=== PATIENT | female | born 1965 | race Caucasian/White ===

== ENCOUNTER 2018-06-01 00:33 | Emergency (ER) | payer BC ==
[2018-06-01] MEDS ORDERED: NS 0.9% 1000 ML* 1,000 ML IV ONE ×2 (00:38→02:03)
[2018-06-01] MEDS ORDERED: Ondansetron ODT TAB* 4 MG SL PRN (00:39)
[2018-06-01] MEDS ORDERED: Ondansetron ODT TAB* 4 MG SL ONE (00:49)
[2018-06-01 00:56] LABS: Hematocrit 46 % (35-47); Hemoglobin 15.8 g/dl (12.0-16.0); Mean Corpuscular HGB Conc 34 g/dl (31-36); Mean Corpuscular Hemoglobin 31 pg (27-31); Mean Corpuscular Volume 91 fL (80-97); Mean Platelet Volume 8.4 um3 (7.4-10.4); Platelet Count 303 10^3/ul (150-450); Red Blood Count 5.03 10^6/ul (4.00-5.40); Red Cell Distribution Width 14 % (10.5-15); White Blood Count 15.9 10^3/ul (3.5-10.8)
[2018-06-01] MEDS ORDERED: Ondansetron ODT TAB* 4 MG ONE (00:56)
[2018-06-01 01:07] LABS: ABS Basophils 0.1 10^3/ul (0-0.2); ABS Eosinophils 0.3 10^3/ul (0-0.6); ABS Lymphocytes 5.1 10^3/ul (1.0-4.8); ABS Monocytes 1.2 10^3/ul (0-0.8); ABS Neutrophils 9.2 10^3/ul (1.5-7.7)
[2018-06-01 01:13] LABS: INR 0.86 (0.77-1.02)
[2018-06-01 01:14] LABS: EGFR Non-African American 56.1 (>60)
[2018-06-01 01:34] LABS: Monocytes % 3 % (0-7)
[2018-06-01] MEDS ORDERED: Metoclopramide IV* 5 MG/ML 2 ML VIAL IV SLOW PU ONE (02:02)
[2018-06-01] MEDS ORDERED: Ketorolac INJ* 30 MG/ML 1 ML VIAL IV PUSH ONE (02:02)
[2018-06-01] MEDS ORDERED: diPHENhydraMINE IV* 50 MG/ML 1 ml VIAL (BENADRYL) IV ONE (02:03)
[2018-06-01 03:18] VITALS: BP 93/44
--- NOTE | 2018-06-01 03:35 | ED ---
Darrick Albrecht Devyn, scribed for Nancy Spence MD on 06/01/18 at 0105 . Syncope/Near Syncope - HPI Summary HPI Summary: This patient is a 53 year old F who experienced syncope while in [facility] with her daughter. She cried out and fell out of her chair head first after seeing blood being drawn from her daughter. Upon awakening from the fall, pt was dry- heaving. Pt remembers crying out but not hitting her head. PMHx of vasovagal syncope due to seeing needles and/or blood drawn. Pt c/o no pain but reports that she is nauseous. Pt vomited while in the ED. - History Of Current Complaint Chief Complaint: EDSyncope Time Seen by Provider: 06/01/18 00:37 Hx Obtained From: Patient Onset/Duration: Sudden Onset, Resolved Context: Witnessed, Loss Of Consciousness Activity At Onset: At Rest Associated Head Trauma: No Associated Signs And Symptoms: Vomiting - Allergies/Home Medications Allergies/Adverse Reactions: Allergies Allergy/AdvReac Type Severity Reaction Status Date / Time No Known Allergies Allergy Verified 08/03/14 16:36 Home Medications: Home Medications Aspirin 81 mg CHEW TAB* [Aspirin Low Dose TAB*] 81 mg PO DAILY 06/01/18 [ History Confirmed 06/01/18] Atorvastatin* [Lipitor*] 80 mg PO 1700 06/01/18 [History Confirmed 06/01/18] Fluoxetine HCl 40 mg PO DAILY 06/01/18 [History Confirmed 06/01/18] Metoprolol Tartrate TAB* [Lopressor TAB*] 50 mg PO DAILY 06/01/18 [History Confirmed 06/01/18] Naproxen [Naproxen 500 mg tab] 500 mg PO DAILY 06/01/18 [History Confirmed 06/01] [place]-3 Fatty Acids/Fish Oil [Fish Oil 1,000 mg Capsule] 1 each PO DAILY [History Confirmed 06/01/18] cloNIDine TAB* [Catapres 0.1 MG TAB*] 0.2 mg PO DAILY 06/01/18 [History Confirmed 06/01/18] PMH/Surg Hx/FS Hx/Imm Hx Cardiovascular History: Reports: Hx Syncope - vasovagal History: Denies: Hx Dialysis Infectious Disease History: No Infectious Disease History: Denies: Traveled Outside the [place] in Last 30 Days - Family History Known Family History: Positive: Other - vasovagal syncope, daughter - Social History Alcohol Use: Rare Substance Use Type: Reports: None Smoking Status (MU): Heavy Every Day Tobacco Smoker Review of Systems Positive: Vomiting, Nausea Positive: Syncope All Other Systems Reviewed And Are Negative: Yes Physical Exam - Summary Physical Exam Summary: VITAL SIGNS: Reviewed. GENERAL: Patient is a well-developed and nourished female who is lying in the stretcher. Patient is not in any acute respiratory distress. HEAD AND FACE: No signs of trauma. No ecchymosis, hematomas or skull depressions. No sinus tenderness. EYES: PERRLA, EOMI x 2, No injected conjunctiva, no nystagmus. EARS: Hearing grossly intact. Ear canals and tympanic membranes are within normal limits. MOUTH: Oropharynx within normal limits. NECK: Supple, trachea is midline, no adenopathy, no JVD, no carotid bruit, no c- spine tenderness, neck with full ROM. CHEST: Symmetric, no tenderness at palpation LUNGS: Clear to auscultation bilaterally. No wheezing or crackles. CVS: Regular rate and rhythm, S1 and S2 present, no murmurs or gallops appreciated. ABDOMEN: Soft, non-tender. No signs of distention. No rebound no guarding, and no masses palpated. Bowel sounds are normal. EXTREMITIES: FROM in all major joints, no edema, no cyanosis or clubbing. NEURO: Alert and oriented x 3. No acute neurological deficits. Speech is normal and follows commands. SKIN: Dry and warm Triage Information Reviewed: Yes Vital Signs On Initial Exam: Initial Vitals Temp Pulse Resp BP Pulse Ox 98.3 F 66 20 127/64 96 06/01/18 00:35 06/01/18 00:35 06/01/18 00:35 06/01/18 00:35 06/01/18 00:35 Vital Signs Reviewed: Yes Diagnostics - Vital Signs Vital Signs Temp Pulse Resp BP Pulse Ox 06/01/18 00:35 98.3 F 66 20 127/64 96 - Laboratory Result Diagrams: 06/01/18 00:47 06/01/18 00:47 Lab Statement: Any lab studies that have been ordered have been reviewed, and results considered in the medical decision making process. - CT CT Head CT Interpretation Completed By: Radiologist - Normal brain. No acute intracranial abnormality. No hemorrhage. No visible infarct or mass. Osseous structures are intact. Dr. Spence reviewed this report. - EKG 00:30 Cardiac Rate: NL EKG Rhythm: Sinus Rhythm - 70bpm EKG Interpretation: Normal axis. Normal interval. No ischemic changes Course/Dx Course Of Treatment: This patient is a 53 year old F who experienced syncope while in [facility] with her daughter. She cried out and fell out of her chair head first after seeing blood being drawn from her daughter. Upon awakening from the fall, pt was dry-heaving. Pt remembers crying out but not hitting her head. PMHx of vasovagal syncope. Pt c/o no pain but reports that she is nauseous. Pt vomited while in the ED. CT brain showed no abnormalities. Test results with no significant abnormalities except for WBC 15.9, Reactive Lymphs 15 H, glucose 154 H, Lactic Acid 2.2 H, alkaline phosphatase 135 H, TSH 6.36. In the ED course the patient was given Zofran, Benadryl, Toradol, Reglan, and IV fluids. Patient will be discharged with follow up from PCP. The patient is agreeable with this plan. - Diagnoses Provider Diagnoses: Headache, Vasovagal syncope Discharge - Sign-Out/Discharge Documenting (check all that apply): Discharge/Admit/Transfer - discharge - Discharge Plan Condition: Stable Disposition: HOME Patient Education Materials: Syncope (ED) Referrals: Cem SCOTT,Tip Logan [Primary Care Provider] - 3 Days () Additional Instructions: RETURN TO THE EMERGENCY DEPARTMENT FOR CHANGING OR WORSENING SYMPTOMS The documentation as recorded by the Darrick tilley Devyn accurately reflects the service I personally performed and the decisions made by , Nancy Spence MD.
--- NOTE | 2018-06-01 07:55 | RAD ---
INDICATION: Syncope COMPARISON: None TECHNIQUE: Noncontrast axial source images were acquired from the skull base to the vertex. FINDINGS: Ventricles/sulci: The ventricles and cisterns are normal in size and configuration for age. Brain parenchyma: There is no focal parenchymal finding, evidence of intracranial mass, or intracranial mass effect. Intracranial hemorrhage:None. Extra-axial spaces: There are no abnormal extra axial fluid collections or evidence of extra-axial mass. Calvarium: There is no calvarial fracture or other calvarial abnormality. Scalp: There is no evidence of scalp or extracalvarial soft tissue abnormality. Paranasal sinuses/mastoid: The paranasal sinuses and mastoid air cells are clear. Other: None. IMPRESSION: NEGATIVE EXAMINATION
== END 2018-06-01 03:19 | disposition home or self-care (01) ==
LOC: ED 00:33
DX: R55 Syncope and collapse (principal); R51 Headache; R11.2 Nausea with vomiting, unspecified; Z79.82 Long term (current) use of aspirin; F17.210 Nicotine dependence, cigarettes, uncomplicated
CPT/HCPCS: 36415; 70450; 80053; 83605; 83735; 84443; 84484; 85025; 85060; 85610; 85730; 86308; 93005; 96374; 96375; 99283; A9270-GY; J1200; J1885; J2765

== ENCOUNTER 2020-02-03 09:42 | Emergency (ER) | payer BC ==
[2020-02-03 10:04] VITALS: BP 140/66
--- NOTE | 2020-02-03 11:40 | UC ---
Throat Pain/Nasal Jalil HPI - HPI Summary HPI Summary: 54-year-old female presenting with left-sided sinus pain, dental pain, and earache. Patient states symptoms began 3 days ago and have worsened today. Thinks she might be congested but isn't sure if it congestion or tooth pain. Denies fever and chills. Denies drainage from many teeth. Does note minimal left-sided facial swelling. Denies nausea or vomiting. Taking ibuprofen and Tylenol for pain relief. - History of Current Complaint Chief Complaint: UCRespiratory Stated Complaint: DENTAL/SINUS PAIN Hx Obtained From: Patient Pain Intensity: 6 Pain Scale Used: 0-10 Numeric - Allergies/Home Medications Allergies/Adverse Reactions: Allergies Allergy/AdvReac Type Severity Reaction Status Date / Time No Known Allergies Allergy Verified 02/03/20 09:59 Home Medications: Home Medications Aspirin 81 mg CHEW TAB* [Aspirin Low Dose TAB*] 81 mg PO DAILY 06/01/18 [ History Confirmed 02/03/20] Atorvastatin* [Lipitor*] 80 mg PO DAILY 06/01/18 [History Confirmed 02/03/20] Metoprolol Tartrate TAB* [Lopressor TAB*] 50 mg PO DAILY 06/01/18 [History Confirmed 02/03/20] Amoxicillin PO (*) [Amoxicillin 500 MG CAP*] 500 mg PO TID #21 cap 02/03/20 [Rx] FLUoxetine CAP* [PROzac CAP*] 40 mg PO DAILY 02/03/20 [History Confirmed ] Naproxen TAB* [Naprosyn 250 mg TAB*] 500 mg PO DAILY 02/03/20 [History Confirmed 02/03/20] PMH/Surg Hx/FS Hx/Imm Hx Previously Healthy: Yes - Surgical History Surgical History: Yes Surgery Procedure, Year, and Place: Hysterectomy, ~2016 - Family History Known Family History: Positive: Other - vasovagal syncope, daughter - Social History Alcohol Use: Rare Substance Use Type: None Smoking Status (MU): Heavy Every Day Tobacco Smoker Type: Cigarettes Amount Used/How Often: ~1/2 PPD Length of Time of Smoking/Using Tobacco: Since Age 18 Household Exposure Type: Cigarettes Review of Systems All Other Systems Reviewed And Are Negative: Yes Constitutional: Positive: Negative ENT: Positive: Dental Pain - left upper, Ear Ache - left, Sinus Congestion - left, Sinus Pain/Tenderness - left Respiratory: Positive: Negative Cardiovascular: Positive: Negative Gastrointestinal: Positive: Negative Musculoskeletal: Positive: Negative Neurological/Mental Status: Positive: Negative Physical Exam - Summary Physical Exam Summary: Vital Signs Reviewed: Yes A+Ox3, no distress Eyes: Conjunctiva Clear ENT: Hearing grossly normal, b/l cerumen impaction, moist, uvula midline, no exudate, no erythema Dental exam: +TTP tooth #14 with mild surrounding erythema, no drainage, no fluctuance, +mild left side facial edema Neck: Positive: Supple, +preauricular node enlargement Respiratory: Positive: No respiratory distress, No accessory muscle use + CTA throughout no w/r Cardiovascular: RRR nl s1, s2 no m/r Musculoskeletal Exam: BROOKS x 4 without difficulty Neurological: Positive: Alert Psychological: Positive: age appropriate behavior Skin: Positive: no rash, no ecchymosis Vital Signs: Initial Vital Signs Temp 98 F 02/03/20 09:57 Pulse 66 02/03/20 09:57 Resp 18 02/03/20 09:57 BP 140/66 02/03/20 09:57 Pulse Ox 99 02/03/20 09:57 Throat Pain/Nasal Course/Dx - Course Course Of Treatment: Bilateral cerumen impaction, patient declined cerumen removal. I treated patient with amoxicillin for dental infection and instructed to take decongestant otc if needed. Instructed to follow up with her dentist appt that is scheduled for feb 11. Instructed to go to ED with any new or worsening symptoms. Patient voiced understanding and agreed with treatment plan. - Differential Dx/Diagnosis Differential Diagnosis/HQI/PQRI: Sinusitis, URI Provider Diagnosis: Infected dental caries Discharge ED - Sign-Out/Discharge Documenting (check all that apply): Patient Departure All imaging exams completed and their final reports reviewed: No Studies - Discharge Plan Condition: Stable Disposition: HOME Prescriptions: Amoxicillin PO (*) [Amoxicillin 500 MG CAP*] 500 mg PO TID #21 cap Patient Education Materials: Toothache (ED) Referrals: Tip Priest PA [Primary Care Provider] - Additional Instructions: Take amoxicillin as prescribed for dental infection. You may also take an over the counter decongestant if needed. Continue with tylenol and ibuprofen as directed for pain relief. You should also perform salt water gargles a couple times daily. Be sure to attend your dentist appt as scheduled. Go to the emergency room with any new or worsening symptoms. - Billing Disposition and Condition Condition: STABLE Disposition: Home
== END 2020-02-03 12:06 | disposition home or self-care (01) ==
LOC: UCCORT 09:42
DX: K04.7 Periapical abscess without sinus (principal); J34.89 Other specified disorders of nose and nasal sinuses; H92.09 Otalgia, unspecified ear; Z79.82 Long term (current) use of aspirin; F17.210 Nicotine dependence, cigarettes, uncomplicated
CPT/HCPCS: 99212; G0463